=== PATIENT | female | born 2000 | race Caucasian/White ===

== ENCOUNTER 2019-09-22 00:45 | Emergency (ER) | payer MEDICAID ==
[~2019-09-22] VITALS: Ht 165.1 cm; Wt 88.5 kg
[2019-09-22 00:50] VITALS: BP 134/95
[2019-09-22] MEDS ORDERED: PROAIR HFA8.5 GM INH (00:55)
[2019-09-22] MEDS ORDERED: XARELTO20 MG PO (00:55)
[2019-09-22] MEDS ORDERED: VALIUM10 MG PO (00:55)
[2019-09-22 01:27] LABS: URINE BILIRUBIN NEGATIVE (Negative); URINE BLOOD TRACE (Negative); URINE CLARITY CLEAR; URINE COLOR YELLOW; URINE GLUCOSE-RANDOM NEGATIVE (Negative); URINE KETONES NEGATIVE (Negative); URINE LEUKOCYTES-REFLEX NEGATIVE (Negative); URINE NITRITE-REFLEX NEGATIVE (Negative); URINE PROTEIN NEGATIVE (Negative)
[2019-09-22 01:36] LABS: AMP/METHAMP Negative (Negative); BARBITURATES Negative (Negative); BENZODIAZEPINES POSITIVE (Negative); COCAINE Negative (Negative); METHADONE Negative (Negative); OPIATES Negative (Negative); PCP Negative (Negative); THC Negative (Negative)
[2019-09-22 01:40] LABS: ABSOLUTE EOSINOPHILS 0.1 thou/uL (0.0-0.7); ABSOLUTE LYMPHOCYTES 1.5 thou/uL (0.8-5.3); ABSOLUTE MONOCYTES 0.5 thou/uL (0.0-1.2); ABSOLUTE NEUTROPHILS 2.7 thou/uL (1.6-8.1); BASOPHILS 0.7 %; EOSINOPHILS 2.6 %; HEMATOCRIT 35.8 % (37.0-47.0); HEMOGLOBIN 12.6 gm/dL (12.0-15.0); LYMPHOCYTES 31.3 %; MCH 29.1 pg (26.0-34.0); MCHC 35.1 g/dL (28.0-37.0); MCV 82.9 fL (80.0-100.0); MONOCYTES 10.6 %; NUCLEATED RBCS 0 /100WBC; PLATELET COUNT* 378 thou/uL (150-400); POLYS 54.8 %; RBC 4.32 mil/uL (4.20-5.00); RDW-CV 16.2 % (10.5-14.5); WBC 4.9 thou/uL (4.0-11.0)
[2019-09-22 01:56] LABS: CALCIUM 8.9 mg/dL (8.5-10.1); CREATININE 1.1 mg/dL (0.6-1.3); POTASSIUM 3.4 mmol/L (3.5-5.1)
[2019-09-22 02:01] LABS: TOTAL BILIRUBIN 0.5 mg/dL (<0.1-1.0); TOTAL PROTEIN 7.8 g/dL (6.4-8.2)
== END 2019-09-22 02:20 | disposition home or self-care (01) ==
LOC: M.ERS 00:45
PROVIDERS: Personal Emergency Response Attendant
DX: R10.84 Generalized abdominal pain (principal); R11.2 Nausea with vomiting, unspecified; J45.909 Unspecified asthma, uncomplicated; E03.9 Hypothyroidism, unspecified; Z88.6 Allergy status to analgesic agent; Z88.8 Allergy status to other drugs, medicaments and biological substances; Z90.49 Acquired absence of other specified parts of digestive tract; Z79.899 Other long term (current) drug therapy